=== PATIENT | male | born 1965 | race Caucasian/White ===

== ENCOUNTER 2023-11-02 11:54 | Outpatient (CLI) | payer MEDICARE, SELFPAY ==
--- NOTE | 2023-11-02 12:02 | CT_ITS ---
WS: [id number] CT ABDOMEN AND PELVIS WITH CONTRAST HISTORY: UMBILICAL HERNIA WITH OBSTRUCTION, WITHOUT GANGRENE TECHNIQUE: Imaging performed of the abdomen and pelvis with IV contrast. Single phase imaging of the abdomen. Coronal and sagittal reformats are submitted. All CT scans at [facility] use at [address] one of these dose optimization techniques: automated exposure control; mA and/or kV adjustment per patient size (includes targeted exams where dose is matched to clinical indication); or iterative re construction. IV CONTRAST: Omnipaque 350; 100 mL IV. Oral contrast: No DLP: 736.50 mGy.cm COMPARISON: None available. Lower thorax: Lung bases are clear. Heart is normal size. No hiatal hernia. Liver/biliary system: Normal size liver with diffuse hepatic steatosis. Normal portal vein. No mass. Gallbladder: Normal. No gallstones or wall thickening. No pericholecystic fluid. Pancreas: Normal size pancreas and pancreatic duct. No adjacent inflammation. Spleen: Normal size spleen. No mass or infarct. Adrenal glands: Normal. Right kidney: Normal. Left kidney: Normal. Aorta: Normal. Lymphadenopathy: None. Free fluid: None. GI tract: Nondistended stomach. No small bowel obstruction. Normal appendix. No colitis or colon obst ruction. Abdominal wall: Umbilical hernia contains omentum only. Orifice of the hernia 6 mm. No fat necrosis o r incarcerated bowel. Pelvis: No free fluid or adenopathy within the pelvis. Mild prostate gland enlargement with central c alcification. Bones: Unremarkable. CT/CT abdomen pelvis w con* [id number] IMPRESSION: 1. Ventral umbilical hernia contains omentum only. 2. No GI tract obstruction. No omental fat necrosis. No renal obstruction. 3. Hepatic steatosis. 4. Normal appendix.
[2023-11-02] MEDS: iohexol 350 mg/mL 500 mL Btl (per mL) IV (12:14)
== END 2023-11-02 11:55 | disposition home or self-care (01) ==
PROVIDERS: PCP Family Medicine; Visit Provider Family Medicine
DX: K42.0 Umbilical hernia with obstruction, without gangrene (principal); K76.0 Fatty (change of) liver, not elsewhere classified
CPT/HCPCS: 74177; Q9967